=== PATIENT | female | born 1965 | race Hispanic/Latino ===

== ENCOUNTER 2021-09-28 13:26 | Emergency (ER) | payer OTHER ==
[2021-09-28] MEDS ORDERED: HYDROmorphone 1 MG/1 ML INJ IV ONE ×3 (14:27→23:17)
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
[2021-09-28] MEDS ORDERED: MIDAZOLAM 5 MG/5 ML INJ MDV IV STA (15:33)
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
[2021-09-28] MEDS ORDERED: MIDAZOLAM 2 MG/2 ML INJ ONE (15:36)
[2021-09-28] MEDS ORDERED: MIDAZOLAM 2 MG/2 ML INJ IV ONE (15:43)
[2021-09-28] MEDS ORDERED: HYDROmorphone 2 MG/1 ML INJ IV ONE (16:25)
[2021-09-28] MEDS ORDERED: LIDOCAINE (2%) 20 MG/1 ML VIAL 20 ML MDV INFILTRATI ONE (16:25)
[2021-09-28] MEDS ORDERED: MIDAZOLAM 5 MG/5 ML INJ MDV IV ONE (16:30)
[2021-09-28] MEDS ORDERED: fentaNYL 100 MCG/2 ML INJ IV ONE (16:30)
[2021-09-28] MEDS ORDERED: ONDANSETRON 4 MG/2 ML INJ IV ONE (16:45)
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
[2021-09-28 23:50] VITALS: BP 130/78
== END 2021-09-29 01:26 | disposition hospice, inpatient (51) ==
LOC: ED 13:26
DX: S52.501A Unspecified fracture of the lower end of right radius, initial encounter for closed fracture (principal); M25.531 Pain in right wrist; V89.2XXA Person injured in unspecified motor-vehicle accident, traffic, initial encounter; Y93.89 Activity, other specified; Y92.89 Other specified places as the place of occurrence of the external cause; Y99.8 Other external cause status
CPT/HCPCS: 25605; 73090; 73100; 96374; 96375; 96376; 99285; J1170; J2250; J2405; J3010; J3490